=== PATIENT | male | born 1985 | race Caucasian/White ===

== ENCOUNTER 2016-11-30 19:22 | Emergency (ER) | payer OTHER, BC ==
[2016-11-30] MEDS ORDERED: FAMOTIDINE 20 MG TABLET PO ONE (21:12)
[2016-11-30] MEDS ORDERED: NAPROXEN 250 MG TABLET PO ONE (21:12)
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
[2016-11-30 23:01] VITALS: BP 132/77
== END 2016-11-30 21:20 | disposition home or self-care (01) ==
LOC: ER 19:22
DX: M54.2 Cervicalgia (principal); V49.40XA Driver injured in collision with unspecified motor vehicles in traffic accident, initial encounter
CPT/HCPCS: 99283

== ENCOUNTER 2018-02-21 18:28 | Emergency (ER) | payer BC, OTHER ==
--- NOTE | 2018-02-21 19:19 | ER Document Report ---
ED Medical Screen (RME) - General Chief Complaint: Palpitations Stated Complaint: PALPITATIONS Time Seen by Provider: 02/21/18 18:55 Mode of Arrival: Ambulatory Information source: Patient Notes: This is a 32-year-old man with underlying hypertension in the past who is experienced several episodes of palpitations/fast heartbeat, near syncope, dizziness. Patient states he was taking a nap at work at 11:45 AM when he had his first episode which lasted about 5 minutes. He did state that he felt like he was going to pass out at that time. He states that since that time he had several episodes of dizziness. His last episode was approximately 4:30 PM. He did go to the urgent care and had reportedly had a blood pressure which was elevated and was given clonidine and referred to the ER. Patient denies significant alcohol intake. He does state that he had episodes of palpitations years ago which were quite frequent and seem to be associated with alcohol intake. He states he significantly dropped his alcohol intake and those palpitations improved until recently. He denies any coffee intake. He denies any caffeine pills or supplements. He denies any energy drinks. He has been drinking 2 Mountain Dew's a day which is more for him he sleeps about 6 hours a night. He smokes less than a quarter of a pack per day. He does take Excedrin regularly as reported by his . He states he will rarely take more than 2 a day. TRAVEL OUTSIDE OF THE [place] IN LAST 30 DAYS: No - Related Data Allergies/Adverse Reactions: No Known Allergies Allergy (Unverified 11/30/16 20:15) Past Medical History Renal/ Medical History: Denies: Hx Peritoneal Dialysis - Immunizations Immunizations up to date: Yes Hx Diphtheria, Pertussis, Tetanus Vaccination: Yes Physical Exam - Vital signs Vitals: Temp Pulse Resp BP Pulse Ox 97.6 F 62 16 138/103 H 100 02/21/18 18:35 02/21/18 18:35 02/21/18 18:35 02/21/18 18:35 02/21/18 18:35 Course - Vital Signs Vital signs: Temp Pulse Resp BP Pulse Ox 97.6 F 62 16 138/103 H 100 02/21/18 18:35 02/21/18 18:35 02/21/18 18:35 02/21/18 18:35 02/21/18 18:35
[2018-02-21 19:51] LABS: ABSOLUTE BASOPHILS # (AUTO) 0.1 10^3/uL (0.0-0.2); ABSOLUTE EOSINOPHILS # (AUTO) 0.3 10^3/uL (0.0-0.6); ABSOLUTE LYMPHOCYTES (AUTO) 1.7 10^3/uL (0.5-4.7); ABSOLUTE MONOCYTES (AUTO) 0.4 10^3/uL (0.1-1.4); ABSOLUTE NEUT (AUTO) 2.8 10^3/uL (1.7-8.2); BASOPHILS % (AUTO) 1.1 % (0-2); EOSINOPHILS % (AUTO) 5.1 % (0-6); HEMATOCRIT 45.2 % (37.9-51.0); HEMOGLOBIN 15.8 g/dL (13.5-17.0); LYMPHOCYTES % (AUTO) 32.5 % (13-45); MEAN CORPUSCULAR HEMOGLOBIN 30.8 pg (27.0-33.4); MEAN CORPUSCULAR HGB CONC 34.9 g/dL (32.0-36.0); MEAN CORPUSCULAR VOLUME 88 fl (80-97); MONOCYTES % (AUTO) 7.3 % (3-13); PLATELET COUNT 218 10^3/uL (150-450); RED BLOOD COUNT 5.12 10^6/uL (4.35-5.55); RED CELL DISTRIBUTION WIDTH 13.4 % (11.5-14.0); TOTAL CELLS COUNTED % (AUTO) 100 %; WHITE BLOOD COUNT 5.1 10^3/uL (4.0-10.5)
[2018-02-21 20:05] LABS: ALANINE AMINOTRANSFERASE 27 U/L (21-72); ALBUMIN 4.9 g/dL (3.5-5.0); ALKALINE PHOSPHATASE 63 U/L (38-126); ANION GAP 12 (5-19); ASPARTATE AMINO TRANSFERASE 25 U/L (17-59); BILIRUBIN,DIRECT 0.2 mg/dL (0.0-0.4); BILIRUBIN,TOTAL 0.8 mg/dL (0.2-1.3); BLOOD UREA NITROGEN 9 mg/dL (7-20); CALCIUM 10.1 mg/dL (8.4-10.2); CARBON DIOXIDE 30 mmol/L (22-30); CHLORIDE 102 mmol/L (98-107); GLUCOSE 91 mg/dL (75-110); POTASSIUM 4.2 mmol/L (3.6-5.0); SODIUM 144.4 mmol/L (137-145); TOTAL PROTEIN 7.8 g/dL (6.3-8.2)
[2018-02-21 22:17] VITALS: BP 139/100
[2018-02-21] MEDS ORDERED: AMLODIPINE BESYLATE 2.5 MG TABLET PO ONE (22:24)
--- NOTE | 2018-02-21 22:28 | ER Document Report ---
ED General - General Chief Complaint: Palpitations Stated Complaint: PALPITATIONS Time Seen by Provider: 02/21/18 18:55 Mode of Arrival: Ambulatory TRAVEL OUTSIDE OF THE [place] IN LAST 30 DAYS: No - HPI Patient complains to provider of: Palpitations dizziness hypertension Notes: Patient was seen in triage prior to my evaluation triage note states below This is a 32-year-old man with underlying hypertension in the past who is experienced several episodes of palpitations/fast heartbeat, near syncope, dizziness. Patient states he was taking a nap at work at 11:45 AM when he had his first episode which lasted about 5 minutes. He did state that he felt like he was going to pass out at that time. He states that since that time he had several episodes of dizziness. His last episode was approximately 4:30 PM. He did go to the urgent care and had reportedly had a blood pressure which was elevated and was given clonidine and referred to the ER. Patient denies significant alcohol intake. He does state that he had episodes of palpitations years ago which were quite frequent and seem to be associated with alcohol intake. He states he significantly dropped his alcohol intake and those palpitations improved until recently. He denies any coffee intake. He denies any caffeine pills or supplements. He denies any energy drinks. He has been drinking 2 Mountain Dew's a day which is more for him he sleeps about 6 hours a night. He smokes less than a quarter of a pack per day. He does take Excedrin regularly as reported by his . He states he will rarely take more than 2 a day. Patient does agree to the statements. Patient states he has increased his Mountain Dew use because there is an around from his son's birthday alliance party. Patient otherwise asymptomatic at this time. Patient denies any past medical history patient states he does not have a primary care physician. Otherwise patient does endorse hypertension states normally goes to local drug stores with elevated blood pressure however is not seen a physician for this denies any recent travel denies any trauma denies any antibiotics denies fevers chills nausea vomiting diarrhea resting comfortably upon my evaluation - Related Data Allergies/Adverse Reactions: No Known Allergies Allergy (Unverified 11/30/16 20:15) Past Medical History - General Information source: Patient - Social History Smoking Status: Current Every Day Smoker Family History: Reviewed & Not Pertinent Patient has suicidal ideation: No Patient has homicidal ideation: No Renal/ Medical History: Denies: Hx Peritoneal Dialysis - Immunizations Immunizations up to date: Yes Hx Diphtheria, Pertussis, Tetanus Vaccination: Yes Review of Systems - Review of Systems Constitutional: No symptoms reported EENT: No symptoms reported Cardiovascular: Palpitations, Dizziness Respiratory: No symptoms reported Gastrointestinal: No symptoms reported Genitourinary: No symptoms reported Male Genitourinary: No symptoms reported Musculoskeletal: No symptoms reported Skin: No symptoms reported Hematologic/Lymphatic: No symptoms reported Neurological/Psychological: No symptoms reported -: Yes All other systems reviewed and negative Physical Exam - Vital signs Vitals: Temp Pulse Resp BP Pulse Ox 97.6 F 62 16 138/103 H 100 02/21/18 18:35 02/21/18 18:35 02/21/18 18:35 02/21/18 18:35 02/21/18 18:35 Interpretation: Normal - General General appearance: Appears well, Alert - HEENT Head: Normocephalic, Atraumatic Eyes: Normal Pupils: PERRL - Respiratory Respiratory status: No respiratory distress Chest status: Nontender Breath sounds: Normal Chest palpation: Normal - Cardiovascular Rhythm: Regular Heart sounds: Normal auscultation Murmur: No - Abdominal Inspection: Normal Distension: No distension Bowel sounds: Normal Tenderness: Nontender Organomegaly: No organomegaly - Back Back: Normal, Nontender - Extremities General upper extremity: Normal inspection, Nontender, Normal color, Normal ROM , Normal temperature General lower extremity: Normal inspection, Nontender, Normal color, Normal ROM , Normal temperature, Normal weight bearing. No: Chapin's sign - Neurological Neuro grossly intact: Yes Cognition: Normal Orientation: AAOx4 [place] Coma Scale Eye Opening: Spontaneous Arturo Coma Scale Verbal: Oriented Arturo Coma Scale Motor: Obeys Commands [place] Coma Scale Total: 15 Speech: Normal Motor strength normal: LUE, RUE, LLE, RLE Sensory: Normal - Psychological Associated symptoms: Normal affect, Normal mood - Skin Skin Temperature: Warm Skin Moisture: Dry Skin Color: Normal Course - Re-evaluation Re-evalutation: 02/21/18 22:29 Patient seen for palpitations. Due to the patient's HPI normal laboratory studies more likely is due to caffeine use. Patient was educated to stop excessive caffeine use. Patient also has elevated blood pressure was given clonidine by an urgent care prior to arrival. Patient does have a significant history for elevated blood pressure with EKG from the urgent care showing some LVH. We will start the patient on amlodipine 2.5 mg. Highly recommend patient have a primary care physician established to follow-up patient agrees with treatment plan understands when reviewed the laboratory results and EKG findings. Patient will be discharged home follow-up primary care physician. - Vital Signs Vital signs: Temp Pulse Resp BP Pulse Ox 97.5 F 68 15 139/100 H 100 02/21/18 22:13 02/21/18 22:13 02/21/18 22:13 02/21/18 22:13 02/21/18 22:13 - Laboratory Result Diagrams: 02/21/18 19:20 02/21/18 19:20 Discharge - Discharge Clinical Impression: Palpitations, Dizziness Hypertension Qualifiers: Hypertension type: unspecified Qualified Code(s): I10 - Essential (primary) hypertension Condition: Good Disposition: HOME, SELF-CARE Instructions: Dizziness ([facility]), High Blood Pressure ([facility]), Palpitations ( Irregular or Rapid Heartrate) ([facility]) Additional Instructions: Your laboratory studies today do not show any significant pathology for your palpitations. No mitral abnormalities normal thyroid studies no signs of infection. I would highly recommend she follow-up with a primary care physician or when the physicians listed. Because of your elevated blood pressure I recommended we start you on a medication called amlodipine 2.5 mg daily. Return to the ER for any other concerns. I would also recommend avoiding any excess caffeine use drinking soda drinking coffee. Prescriptions: Amlodipine Besylate [Norvasc 2.5 mg Tablet] 2.5 mg PO DAILY #30 tablet Forms: Return to Work
[2018-02-21] MEDS ORDERED: AMLODIPINE BESYLATE 2.5 MG TABLET ONE (22:37)
== END 2018-02-21 22:41 | disposition home or self-care (01) ==
LOC: ER 18:28
DX: R00.2 Palpitations (principal); R42 Dizziness and giddiness; I10 Essential (primary) hypertension; F17.200 Nicotine dependence, unspecified, uncomplicated
CPT/HCPCS: 36415; 80053; 83735; 84443; 85025; 99285